=== PATIENT | female | born 1935 | race Caucasian/White ===

== ENCOUNTER 2016-10-08 09:00 | Outpatient (CLI) | payer MEDICARE ==
[2016-10-08 12:30] LABS: #Basophils 0.1 thou/uL (0.0-0.2); #Eosinphils 0.2 thou/uL (0.0-0.7); #Monocytes 0.6 thou/uL (0.11-0.59); #Neutrophils 3.5 thou/uL (1.40-6.50); %Basophils 1.3 % (0.0-1.0); %Eosinophils 2.6 % (0.0-10.0); %Lymphocytes 40.4 % (21.0-51.0); %Monocytes 8.1 % (0.0-10.0); Hematocrit 34.7 % (36.0-47.0); Mean Platelet Volume 6.1 fL (7.4-10.4); Red Blood Cell (RBC) Count 3.62 mill/uL (4.20-5.40); White Blood Cell (WBC) Count 7.4 thou/uL (4.8-10.8)
[2016-10-08 12:47] LABS: ALT (SGPT) 12 U/L (0-55); AST (SGOT) 16 U/L (5-34); Alkaline Phosphatase 62 U/L (40-150); Anion Gap 16 mmol/L (10-20); BUN (Urea Nitrogen) 29 mg/dL (9.8-20.1); Bilirubin, Direct 0.1 mg/dL (0.1-0.3); Bilirubin, Total 0.2 mg/dL (0.2-1.2); Calc. Creatinine Clearance 0 mL/min (70-130); Calcium 9.3 mg/dL (7.8-10.44); Carbon Dioxide 24 mmol/L (23-31); Chloride 107 mmol/L (98-107); Estimated GFR-MDRD 38; LDL Cholesterol, Calculated 57 mg/dL; Protein, Total 6.5 g/dL (5.8-8.1)
[2016-10-08 13:01] LABS: Hemoglobin A1c 6.8 % (4.0-6.0)
== END 2016-10-08 09:01 | disposition home or self-care (01) ==
LOC: NAVSJIPCSP 09:00
PROVIDERS: ATTEND Family Medicine
DX: E78.00 Pure hypercholesterolemia, unspecified (principal); I10 Essential (primary) hypertension; E03.9 Hypothyroidism, unspecified; E10.51 Type 1 diabetes mellitus with diabetic peripheral angiopathy without gangrene; Z79.899 Other long term (current) drug therapy
CPT/HCPCS: 36415; 80048; 80061; 80076; 83036; 84550; 85025

== ENCOUNTER 2017-02-06 09:01 | Outpatient (CLI) | payer MEDICARE ==
[2017-02-06 12:48] LABS: #Basophils 0.1 thou/uL (0.0-0.2); #Eosinphils 0.1 thou/uL (0.0-0.7); #Lymphocytes 2.9 thou/uL (1.20-3.40); #Monocytes 0.6 thou/uL (0.11-0.59); #Neutrophils 4.7 thou/uL (1.40-6.50); %Eosinophils 1.5 % (0.0-10.0); %Lymphocytes 34.7 % (21.0-51.0); %Monocytes 7.5 % (0.0-10.0); %Neutrophils 55.4 % (42.0-75.0); Hemoglobin 12.1 g/dL (12.0-16.0); Mean Corpuscular HGB CONC 32.4 g/dL (32.0-36.0); Mean Corpuscular Hemoglobin 30.9 pg (27.0-31.0); Mean Corpuscular Volume 95.4 fl (81.0-99.0); Mean Platelet Volume 6.4 fL (7.4-10.4); Platelet Count 234 thou/uL (130-400); RBC Distribution Width 12.4 % (11.5-14.5); Red Blood Cell (RBC) Count 3.93 mill/uL (4.20-5.40); White Blood Cell (WBC) Count 8.4 thou/uL (4.8-10.8)
[2017-02-06 12:53] LABS: ALT (SGPT) 16 U/L (8-55); AST (SGOT) 17 U/L (5-34); Albumin 4.1 g/dL (3.4-4.8); Alkaline Phosphatase 66 U/L (40-150); Anion Gap 17 mmol/L (10-20); BUN (Urea Nitrogen) 29 mg/dL (9.8-20.1); Bilirubin, Direct 0.1 mg/dL (0.1-0.3); Bilirubin, Total 0.2 mg/dL (0.2-1.2); Calc. Creatinine Clearance 0 mL/min (70-130); Calcium 9.7 mg/dL (7.8-10.44); Carbon Dioxide 24 mmol/L (23-31); Cardiac Risk 3.8 (Less than 4.5); Chloride 105 mmol/L (98-107); Cholesterol 128 mg/dl (< 200 Desired); Estimated GFR-MDRD 38; Glucose 104 mg/dL (83-110); HDL Cholesterol 34 mg/dL (>60 Neg Risk); LDL Cholesterol, Calculated 55 mg/dL; Protein, Total 7.1 g/dL (6.0-8.3); Sodium 141 mmol/L (136-145); Triglycerides 195 mg/dL (Less than 150)
[2017-02-06 13:09] LABS: Hemoglobin A1c 6.9 % (4.0-6.0)
== END 2017-02-06 09:02 | disposition home or self-care (01) ==
LOC: NAVSJIPCSP 09:01
PROVIDERS: ATTEND Family Medicine
DX: E78.00 Pure hypercholesterolemia, unspecified (principal); E11.9 Type 2 diabetes mellitus without complications; I10 Essential (primary) hypertension; K21.9 Gastro-esophageal reflux disease without esophagitis; E03.9 Hypothyroidism, unspecified; M10.9 Gout, unspecified; B35.1 Tinea unguium; Z79.899 Other long term (current) drug therapy
CPT/HCPCS: 36415; 80048; 80061; 80076; 83036; 83880; 84443; 85025

== ENCOUNTER 2019-02-22 16:53 | Outpatient (CLI) | payer MEDICARE | END 2019-02-22 16:54 | disposition home or self-care (01) | LOC: NAV LAB 16:53 | PROVIDERS: ATTEND Internal Medicine Gastroenterology | DX: Z01.812 Encounter for preprocedural laboratory examination (principal) | CPT/HCPCS: 36415; 82565 ==

== ENCOUNTER 2019-02-23 09:58 | Outpatient (CLI) | payer MEDICARE ==
--- NOTE | 2019-02-23 10:53 | CT ---
Exam: ABDOMEN CT WITHOUT CONTRAST PELVIC CT WITHOUT CONTRAST: DATE: 02/23/2019 COMPARISON: 12/07/2014. HISTORY: Abdominal pain. FINDINGS: Examination is performed without IV contrast due to diminished GFR. Abdomen CT: Calcified granuloma in the right lung base. Normal heart size. There are coronary calcifications. Atherosclerosis in the visualized aorta is iden tified. There are stents in bilateral common iliac arteries.. Limited evaluation of the solid organs by the lack of IV contrast. Calcified granulomas in the liver and spleen are noted. No obvious solid organ abnormality. Surgically absent gallbladder. No gastrohepatic, retrocrural or periportal lymphadenopathy. Bilateral renal pelvic calcifications are noted and presumed to be vascular. Exophytic parapelvic cys t in the right kidney measures 3.7 x 4.4 cm. Bilaterally no hydronephrosis or perinephric fat stranding. Bilateral ureters have normal caliber. No hydroureter, periureteral fat stranding or urete rolithiasis. Gastric mucosa, duodenum and multiple normal caliber small bowel loops are identified. Ileocecal junc tion is normal. Normal caliber appendix. Scattered fecal material in a nondistended, nondilated colon. Scattered diverticulum. No diverticulitis. CT pelvis: No mass, lymphadenopathy, free air, or free fluid. Osseous structures: No lytic or blastic. lesions. IMPRESSION: 1. No evidence of obstructive uropathy. 2. Occasional diverticulum in the sigmoid colon. No diverticulitis. Colonoscopy if clinically warrant ed. Transcribed Date/Time: 02/23/2019 11:13 AM
== END 2019-02-23 09:59 | disposition home or self-care (01) ==
LOC: NAV CT 09:58
PROVIDERS: ATTEND Internal Medicine Gastroenterology
DX: R10.9 Unspecified abdominal pain (principal); K57.30 Diverticulosis of large intestine without perforation or abscess without bleeding
CPT/HCPCS: 74176

== ENCOUNTER 2020-08-07 15:23 | Emergency (ER) | payer MEDICARE ==
--- NOTE | 2020-08-07 16:25 | RAD ---
4 VIEWS RIGHT KNEE: Date: 08/07/2020 COMPARISON: None. HISTORY: Right knee injury with pain. FINDINGS: Four views of the right knee show no evidence of acute fracture or dislocation. Surgical clips are se en along the medial aspect of the knee. Vascular calcifications are seen. There is mild joint space n arrowing in the lateral femorotibial compartment and mild osteophyte formation in the medial femoroti bial compartment. There is a small knee effusion. A small bony excrescence projecting off the medial aspect of the proximal tibia may represent endosteal chondroma. Moderate diffuse soft tissue swelling is seen. IMPRESSION: Moderate right knee osteoarthritis without acute osseous abnormality. POS: [facility]
== END 2020-08-07 16:23 | disposition home or self-care (01) ==
LOC: NAV ERS 15:23
DX: S83.91XA Sprain of unspecified site of right knee, initial encounter (principal); E03.9 Hypothyroidism, unspecified; K21.9 Gastro-esophageal reflux disease without esophagitis; E11.9 Type 2 diabetes mellitus without complications; Z79.899 Other long term (current) drug therapy; X58.XXXA Exposure to other specified factors, initial encounter

== ENCOUNTER 2020-11-01 13:26 | Outpatient (CLI) | payer MEDICARE | END 2020-11-01 13:27 | disposition home or self-care (01) | LOC: NAV RAD 13:26 | PROVIDERS: ATTEND Family Medicine | DX: K59.00 Constipation, unspecified (principal); R19.5 Other fecal abnormalities | CPT/HCPCS: 74019 ==

== ENCOUNTER 2020-12-17 17:33 | Emergency (ER) | payer MEDICARE ==
[2020-12-17 18:43] LABS: #Lymphocytes 1.9 thou/uL (1.20-3.40); #Monocytes 0.9 thou/uL (0.11-0.59); #Neutrophils 5.3 thou/uL (1.40-6.50); %Basophils 0.6 % (0.0-1.0); %Eosinophils 0.4 % (0.0-10.0); %Lymphocytes 22.8 % (21.0-51.0); %Monocytes 10.7 % (0.0-10.0); %Neutrophils 65.5 % (42.0-75.0); Hemoglobin 10.4 g/dL (12.0-16.0); Mean Corpuscular Hemoglobin 30.8 pg (27.0-31.0); Mean Platelet Volume 6.4 fL (7.4-10.4); Platelet Count 233 thou/uL (130-400); RBC Distribution Width 14.5 % (11.5-14.5); Red Blood Cell (RBC) Count 3.37 mill/uL (4.20-5.40); White Blood Cell (WBC) Count 8.1 thou/uL (4.8-10.8)
[2020-12-17] MEDS ORDERED: Milk Of Magnesia 30 ML UDCUP ONE (18:46)
[2020-12-17] MEDS ORDERED: Mag-Al Plus 1200 MG/1200 MG/120 MG/30 ML UDCUP ONE (18:56)
[2020-12-17 18:57] LABS: ALT (SGPT) 26 U/L (8-55); AST (SGOT) 20 U/L (5-34); Albumin 3.8 g/dL (3.4-4.8); Alkaline Phosphatase 60 U/L (40-110); Anion Gap 16 mmol/L (10-20); BUN (Urea Nitrogen) 17 mg/dL (9.8-20.1); Bilirubin, Total 0.2 mg/dL (0.2-1.2); CK (CPK) 55 U/L (29-168); Calc. Creatinine Clearance 0 mL/min (70-130); Calcium 9.2 mg/dL (7.8-10.44); Carbon Dioxide 24 mmol/L (23-31); Chloride 95 mmol/L (98-107); Glucose 78 mg/dL (83-110); Lipase 25 U/L (8-78); Potassium 4.1 mmol/L (3.5-5.1); Protein, Total 6.8 g/dL (5.8-8.1); Sodium 131 mmol/L (136-145)
[2020-12-17 19:15] LABS: CKMB 1.3 ng/mL (0-6.6)
[2020-12-17] MEDS ORDERED: traMADol HCl 50 MG TAB ONE (19:27)
[2020-12-17] MEDS ORDERED: DULoxetine 30 MG CAP PO SCH (19:30)
[2020-12-17] MEDS ORDERED: traMADol HCl 50 MG TAB PO SCH (19:30)
== END 2020-12-17 20:45 | disposition home or self-care (01) ==
LOC: NAV ERS 17:33
DX: R10.13 Epigastric pain (principal); I20.8 Other forms of angina pectoris; E03.9 Hypothyroidism, unspecified; K21.9 Gastro-esophageal reflux disease without esophagitis; E78.5 Hyperlipidemia, unspecified; E78.00 Pure hypercholesterolemia, unspecified; I10 Essential (primary) hypertension; E11.9 Type 2 diabetes mellitus without complications; Z79.82 Long term (current) use of aspirin; Z79.4 Long term (current) use of insulin; Z79.899 Other long term (current) drug therapy
CPT/HCPCS: 71045; 80053; 82550; 82553; 83690; 84484; 85025; 93005